=== PATIENT | male | born 1990 | race Caucasian/White ===

== ENCOUNTER 2024-08-09 11:36 | Emergency (ER) | payer BC ==
[~2024-08-09] VITALS: Ht 188 cm; Wt 93.2 kg
[~2024-08-09 11:36] MED LIST: CEPHALEXIN500 M1 PO
[2024-08-09 13:08] VITALS: BP 121/80
== END 2024-08-09 13:05 | disposition home or self-care (01) ==
LOC: ED 11:36
DX: S81.011A Laceration without foreign body, right knee, initial encounter (principal); W29.3XXA Contact with powered garden and outdoor hand tools and machinery, initial encounter; Y93.89 Activity, other specified